=== PATIENT | male | born 1940 | race Caucasian/White ===

== ENCOUNTER 2025-01-16 14:53 | Inpatient (IN) | payer MEDICARE, BC, MEDICAID ==
[2025-01-16] MEDS ORDERED: Ondansetron 4 MG/2 ML SDV IV PRN (15:03)
[2025-01-16] MEDS ORDERED: Acetaminophen 325 MG Tab PO PRN (15:03)
[2025-01-16] MEDS ORDERED: Sodium Chloride 0.9% 10 ML Syringe FLUSH PRN (15:03)
[2025-01-16] MEDS ORDERED: Ondansetron 4 MG Tab.DIS PO PRN (15:03)
[2025-01-16] MEDS: Bumetanide 2.5 MG/10 ML MDV IVPUSH SCH (16:13)
[2025-01-16] MEDS ORDERED: Diclofenac Sodium 1% Gel 100 GM Tube TOP PRN (17:01)
[2025-01-16] MEDS ORDERED: Hypromellose 0.3% Ophth Soln 15 ML Bottle EYEBOTH PRN (17:01)
[2025-01-16] MEDS ORDERED: Simethicone 80 MG Tab.Chew PO PRN (17:01)
[2025-01-16] MEDS ORDERED: Lactulose Soln 10 GM/15 ML 30 ML UD Cup PO PRN (17:01)
[2025-01-16] MEDS ORDERED: Calcium Carbonate 500 MG Tab.Chew PO PRN (17:01)
[2025-01-16] MEDS: Acetaminophen 325 MG Tab PO SCH (20:16)
[2025-01-16] MEDS: Sennosides/Docusate Sodium 50-8.6 MG Tab PO SCH (20:16)
[2025-01-16] MEDS: Pravastatin 20 MG Tab PO SCH (20:17)
[2025-01-16] MEDS: Docusate Sodium 100 MG Cap PO SCH (20:17)
[2025-01-16] MEDS: Melatonin 3 MG Tab PO SCH (20:17)
[2025-01-16] MEDS: Tamsulosin 0.4 MG Cap.ER PO SCH (20:17)
[2025-01-16] MEDS: Ferrous Sulfate 324 MG Tab.EC PO SCH (20:17)
[2025-01-16] MEDS: Potassium Chloride 10 MEQ Tab.ER PO SCH (20:18)
[2025-01-16] MEDS: Warfarin** 1 MG TABLET PO SCH (20:18)
[2025-01-16] MEDS: traMADol 50 MG Tab PO PRN (20:21)
[2025-01-17 07:42] LABS: BASOPHILS ABSOLUTE AUTO 0.04 10^3/uL (0.00-0.50); BASOPHILS PERCENT AUTO 0.8 % (0-1); EOSINOPHILS PERCENT AUTO 1.9 % (0-6); HEMATOCRIT 35.8 % (42.0-52.0); HEMOGLOBIN 11.8 g/dL (14.0-18.0); IMMATURE GRAN ABSOLUTE AUTO 0.01 10^3/uL (0.00-0.49); IMMATURE GRAN PERCENT AUTO 0.2 % (0.0-4.9); LYMPHOCYTES ABSOLUTE AUTO 0.38 10^3/uL (0.60-5.00); LYMPHOCYTES PERCENT AUTO 7.1 % (24-44); MEAN CORPUSCULAR HEMOGLOBIN 31.1 pg (27.0-32.0); MEAN CORPUSCULAR VOLUME 94.2 fL (83.0-97.0); MONOCYTES PERCENT AUTO 13.1 % (0-10); NEUTROPHILS PERCENT AUTO 76.9 % (41-71); PLATELET COUNT,PLT 174 10^3/uL (150-400); WHITE BLOOD CELL COUNT,WBC 5.3 10^3/uL (4.0-11.0)
[2025-01-17] MEDS: Ascorbic Acid 500 MG Tab PO SCH (07:47)
[2025-01-17] MEDS: Beta-Carotene (Vitamin A) w/Vitamin C & E plus Minerals Tab PO SCH (07:47)
[2025-01-17] MEDS: Metoprolol Succinate 25 MG Tab.ER PO SCH (07:47)
[2025-01-17] MEDS: Ezetimibe 10 MG Tab PO SCH (07:48)
[2025-01-17] MEDS: Polyethylene Glycol 3350 Powder 17 GM Packet PO SCH (07:48)
[2025-01-17] MEDS: Pantoprazole 40 MG Tab.CR PO SCH (07:48)
[2025-01-17 08:06] LABS: BILIRUBIN TOTAL 0.8 mg/dL (0.0-1.0); C-REACTIVE PROTEIN 1.95 mg/dL (<=0.50); CALCIUM 9.2 mg/dL (8.4-10.1); CREATININE 1.7 mg/dL (0.7-1.3); EST CRCL DRUG DOSING (CG) 33.22 mL/min; POTASSIUM,K 4.5 mEq/L (3.5-5.0); PROTEIN TOTAL,TP 6.6 g/dL (6.4-8.2)
[2025-01-17] MEDS: Temazepam 15 MG Cap PO PRN (21:30)
[2025-01-18 07:52] LABS: BASOPHILS ABSOLUTE AUTO 0.03 10^3/uL (0.00-0.50); BASOPHILS PERCENT AUTO 0.6 % (0-1); EOSINOPHILS ABSOLUTE AUTO 0.12 10^3/uL (0.00-1.50); EOSINOPHILS PERCENT AUTO 2.2 % (0-6); HEMATOCRIT 36.9 % (42.0-52.0); HEMOGLOBIN 12.1 g/dL (14.0-18.0); IMMATURE GRAN ABSOLUTE AUTO 0.01 10^3/uL (0.00-0.49); IMMATURE GRAN PERCENT AUTO 0.2 % (0.0-4.9); LYMPHOCYTES ABSOLUTE AUTO 0.48 10^3/uL (0.60-5.00); MEAN CORPUSCULAR HGB CONC 32.8 g/dL (32.0-36.0); MEAN CORPUSCULAR VOLUME 94.6 fL (83.0-97.0); MONOCYTES PERCENT AUTO 13.1 % (0-10); NEUTROPHILS ABSOLUTE AUTO 4.01 x10^3/uL (1.80-8.00); NEUTROPHILS PERCENT AUTO 74.9 % (41-71); PLATELET COUNT,PLT 180 10^3/uL (150-400); WHITE BLOOD CELL COUNT,WBC 5.4 10^3/uL (4.0-11.0)
[2025-01-18 08:08] LABS: BILIRUBIN TOTAL 0.7 mg/dL (0.0-1.0); C-REACTIVE PROTEIN 1.67 mg/dL (<=0.50); CALCIUM 9.1 mg/dL (8.4-10.1); CREATININE 1.6 mg/dL (0.7-1.3); EST CRCL DRUG DOSING (CG) 35.3 mL/min; POTASSIUM,K 4.3 mEq/L (3.5-5.0); PROTEIN TOTAL,TP 6.6 g/dL (6.4-8.2)
[2025-01-18 12:14] VITALS: BP 119/59; PULSE 87
== END 2025-01-18 11:45 | disposition home or self-care (01) | DRG 291 ==
LOC: UNDOADMIN 14:53 → CC.MS 14:53
PROVIDERS: ADMIT Nurse Practitioner Family; ATTEND Nurse Practitioner Family
DX: I11.0 Hypertensive heart disease with heart failure (principal); I50.33 Acute on chronic diastolic (congestive) heart failure; H54.7 Unspecified visual loss; Z66 Do not resuscitate; I50.813 Acute on chronic right heart failure; I25.10 Atherosclerotic heart disease of native coronary artery without angina pectoris; E78.00 Pure hypercholesterolemia, unspecified; Z96.0 Presence of urogenital implants; I48.91 Unspecified atrial fibrillation; K59.09 Other constipation; Z87.828 Personal history of other (healed) physical injury and trauma; Z86.718 Personal history of other venous thrombosis and embolism; Z98.49 Cataract extraction status, unspecified eye; Z79.52 Long term (current) use of systemic steroids; Z79.899 Other long term (current) drug therapy; Z79.01 Long term (current) use of anticoagulants; Z79.891 Long term (current) use of opiate analgesic; Z90.49 Acquired absence of other specified parts of digestive tract; Z98.890 Other specified postprocedural states
CPT/HCPCS: 36415; 80053; 84484; 85025; 86140; 97161-GP; 99223; 99233; 99238; A9270-GY; J1939

== ENCOUNTER 2025-02-05 19:17 | Inpatient (IN) | payer MEDICARE, BC, MEDICAID ==
[2025-02-05] MEDS: HYDROmorphone 0.5 MG/0.5 ML Syringe IVPUSH ONE (19:48)
[2025-02-05] MEDS: Sodium Chloride 0.9% 500 ML IV SCH (19:49)
[2025-02-05 20:00] LABS: APPEARANCE,URINE TURBID (CLEAR); BILIRUBIN,URINE SMALL (NEGATIVE); COLOR,URINE YELLOW (YELLOW); GLUCOSE,URINE NEGATIVE (NEGATIVE); KETONES,URINE NEGATIVE (NEGATIVE); LEUKOCYTE ESTERASE,URINE NEGATIVE (NEGATIVE); NITRITE,URINE NEGATIVE (NEGATIVE); OCCULT BLOOD,URINE LARGE (NEGATIVE); PROTEIN,URINE >=300 mg/dL (NEGATIVE)
[2025-02-05 20:08] LABS: BACTERIA,URINE MANY /HPF (NOT SEEN); GRANULAR CASTS,URINE FEW /LPF (NOT SEEN); RBC,URINE 0-5 /HPF (0-5); WBC,URINE 20-30 /HPF (0-5)
[2025-02-05 20:29] LABS: BASOPHILS ABSOLUTE AUTO 0.01 10^3/uL (0.00-0.50); BASOPHILS PERCENT AUTO 0.1 % (0-1); EOSINOPHILS ABSOLUTE AUTO 0.01 10^3/uL (0.00-1.50); EOSINOPHILS PERCENT AUTO 0.1 % (0-6); HEMATOCRIT 40.7 % (42.0-52.0); HEMOGLOBIN 13.2 g/dL (14.0-18.0); IMMATURE GRAN ABSOLUTE AUTO 0.03 10^3/uL (0.00-0.49); IMMATURE GRAN PERCENT AUTO 0.3 % (0.0-4.9); LYMPHOCYTES ABSOLUTE AUTO 0.35 10^3/uL (0.60-5.00); LYMPHOCYTES PERCENT AUTO 3.1 % (24-44); MEAN CORPUSCULAR HEMOGLOBIN 30.9 pg (27.0-32.0); MEAN CORPUSCULAR HGB CONC 32.4 g/dL (32.0-36.0); MEAN CORPUSCULAR VOLUME 95.3 fL (83.0-97.0); MONOCYTES ABSOLUTE AUTO 0.83 10^3/uL (0.00-1.50); MONOCYTES PERCENT AUTO 7.3 % (0-10); NEUTROPHILS ABSOLUTE AUTO 10.08 x10^3/uL (1.80-8.00); NEUTROPHILS PERCENT AUTO 89.1 % (41-71); PLATELET COUNT,PLT 234 10^3/uL (150-400); RED BLOOD CELL COUNT 4.27 x10^6/uL (4.50-6.00); WHITE BLOOD CELL COUNT,WBC 11.3 10^3/uL (4.0-11.0)
[2025-02-05 20:42] LABS: ALBUMIN 2.8 g/dL (3.4-5.0); BILIRUBIN TOTAL 4.3 mg/dL (0.0-1.0); C-REACTIVE PROTEIN 8.69 mg/dL (<=0.50); CALCIUM 9.7 mg/dL (8.4-10.1); CREATININE 1.7 mg/dL (0.7-1.3); EST CRCL DRUG DOSING (CG) 33.22 mL/min; MAGNESIUM 1.8 mg/dL (1.8-2.4); PROTEIN TOTAL,TP 7.3 g/dL (6.4-8.2)
[2025-02-05 20:45] LABS: POTASSIUM,K 6.1 mEq/L (3.5-5.0)
[2025-02-05] MEDS ORDERED: Glucagon,Human Recombinant 1 MG Vial IM PRN (20:58)
[2025-02-05] MEDS ORDERED: 50% Dextrose in Water 50 ML Syringe IVPUSH PRN (20:58)
[2025-02-05] MEDS: Sodium Zirconium Cyclosilicate 10 GM Packet PO STA (21:17)
[2025-02-05] MEDS: Calcium Gluconate 10% 1 GM/10 ML SDV IVPUSH ONE (21:18)
[2025-02-05] MEDS: Dextrose 10% in Water 500 ML IV SCH (21:18)
[2025-02-05] MEDS: 50% Dextrose in Water 50 ML Syringe IVPUSH ONE (21:30)
[2025-02-05] MEDS: Insulin Regular, Human 100 Units/ML 10 ML Vial IVPUSH ONE (21:32)
[2025-02-05] MEDS: cefTRIAXone 2 GM Vial IVPUSH ONE (21:40)
[2025-02-05] MEDS: Bumetanide 2.5 MG/10 ML MDV IVPUSH ONE (21:55)
[2025-02-05] MEDS ORDERED: Calcium Carbonate 500 MG Tab.Chew PO PRN (22:17)
[2025-02-05] MEDS ORDERED: Diclofenac Sodium 1% Gel 100 GM Tube TOP PRN (22:17)
[2025-02-05] MEDS ORDERED: Simethicone 80 MG Tab.Chew PO PRN (22:17)
[2025-02-05] MEDS ORDERED: Sennosides/Docusate Sodium 50-8.6 MG Tab PO PRN (22:17)
[2025-02-05] MEDS ORDERED: Polyethylene Glycol 3350 Powder 17 GM Packet PO PRN (22:17)
[2025-02-05] MEDS ORDERED: Ondansetron 4 MG/2 ML SDV IV PRN (22:35)
[2025-02-05] MEDS ORDERED: Acetaminophen 325 MG Tab PO PRN (22:35)
[2025-02-05] MEDS ORDERED: Ondansetron 4 MG Tab.DIS PO PRN (22:35)
[2025-02-05] MEDS: Bumetanide 2.5 MG/10 ML MDV ONE (22:50)
[2025-02-06 01:04] LABS: CALCIUM 9.6 mg/dL (8.4-10.1); CREATININE 1.8 mg/dL (0.7-1.3); EST CRCL DRUG DOSING (CG) 31.38 mL/min; POTASSIUM,K 4.5 mEq/L (3.5-5.0)
[2025-02-06] MEDS: HYDROmorphone 0.5 MG/0.5 ML Syringe IVPUSH PRN (03:51)
[2025-02-06] MEDS: Sodium Zirconium Cyclosilicate 10 GM Packet PO SCH (04:42)
[2025-02-06] MEDS: Pantoprazole 40 MG Tab.CR PO SCH (06:13)
[2025-02-06 07:35] LABS: BASOPHILS ABSOLUTE AUTO 0.01 10^3/uL (0.00-0.50); BASOPHILS PERCENT AUTO 0.1 % (0-1); EOSINOPHILS ABSOLUTE AUTO 0.01 10^3/uL (0.00-1.50); EOSINOPHILS PERCENT AUTO 0.1 % (0-6); HEMATOCRIT 39.1 % (42.0-52.0); HEMOGLOBIN 12.7 g/dL (14.0-18.0); IMMATURE GRAN ABSOLUTE AUTO 0.02 10^3/uL (0.00-0.49); IMMATURE GRAN PERCENT AUTO 0.1 % (0.0-4.9); LYMPHOCYTES ABSOLUTE AUTO 0.36 10^3/uL (0.60-5.00); LYMPHOCYTES PERCENT AUTO 2.6 % (24-44); MEAN CORPUSCULAR HEMOGLOBIN 30.6 pg (27.0-32.0); MEAN CORPUSCULAR HGB CONC 32.5 g/dL (32.0-36.0); MEAN CORPUSCULAR VOLUME 94.2 fL (83.0-97.0); MONOCYTES ABSOLUTE AUTO 0.93 10^3/uL (0.00-1.50); MONOCYTES PERCENT AUTO 6.6 % (0-10); NEUTROPHILS ABSOLUTE AUTO 12.74 x10^3/uL (1.80-8.00); NEUTROPHILS PERCENT AUTO 90.5 % (41-71); PLATELET COUNT,PLT 225 10^3/uL (150-400); RED BLOOD CELL COUNT 4.15 x10^6/uL (4.50-6.00); WHITE BLOOD CELL COUNT,WBC 14.1 10^3/uL (4.0-11.0)
[2025-02-06] MEDS: Bumetanide 2.5 MG/10 ML MDV IVPUSH SCH (07:41)
[2025-02-06] MEDS: Beta-Carotene (Vitamin A) w/Vitamin C & E plus Minerals Tab PO SCH (07:42)
[2025-02-06] MEDS: Tamsulosin 0.4 MG Cap.ER PO PRN (07:42)
[2025-02-06] MEDS: Ezetimibe 10 MG Tab PO SCH (07:42)
[2025-02-06] MEDS: Ferrous Sulfate 324 MG Tab.EC PO SCH (07:43)
[2025-02-06] MEDS: Ascorbic Acid 500 MG Tab PO SCH (07:43)
[2025-02-06] MEDS: Docusate Sodium 100 MG Cap PO PRN (07:43)
[2025-02-06] MEDS: Metoprolol Succinate 25 MG Tab.ER PO SCH (07:44)
[2025-02-06 08:00] LABS: ALBUMIN 2.7 g/dL (3.4-5.0); BILIRUBIN TOTAL 3.8 mg/dL (0.0-1.0); C-REACTIVE PROTEIN 10.94 mg/dL (<=0.50); CALCIUM 9.6 mg/dL (8.4-10.1); CREATININE 1.7 mg/dL (0.7-1.3); EST CRCL DRUG DOSING (CG) 33.22 mL/min; POTASSIUM,K 5.1 mEq/L (3.5-5.0); PROTEIN TOTAL,TP 6.8 g/dL (6.4-8.2)
[2025-02-06] MEDS ORDERED: Hypromellose 0.3% Ophth Soln 15 ML Bottle EYEBOTH PRN (08:09)
[2025-02-06 08:28] LABS: INR > 10.00 (0.92-1.18); PROTHROMBIN TIME > 100.0 SEC (9.3-11.3)
[2025-02-06] MEDS: Oxybutynin 5 MG Tab.ER PO ONE (10:43)
[2025-02-06] MEDS: Phytonadione 5 MG Tab PO ONE (10:44)
[2025-02-06] MEDS: Azithromycin 500 MG in Sodium Chloride 0.9% 250 ML IV SCH (13:47)
[2025-02-06] MEDS: Oxyquinoline/Emollient 0.3% Oint 4 OZ Canister TOP PRN (18:27)
[2025-02-06] MEDS: traMADol 50 MG Tab PO PRN (18:38)
[2025-02-06] MEDS: traMADol 50 MG Tab PO SCH (19:28)
[2025-02-06] MEDS: Tamsulosin 0.4 MG Cap.ER PO SCH (19:38)
[2025-02-06] MEDS: Melatonin 3 MG Tab PO SCH (19:39)
[2025-02-06] MEDS: traZODone 50 MG Tab PO SCH (19:39)
[2025-02-06] MEDS: Pravastatin 20 MG Tab PO SCH (19:40)
[2025-02-06] MEDS: cefTRIAXone 2 GM Vial IVPUSH SCH (19:41)
[2025-02-06] MEDS: Docusate Sodium 100 MG Cap PO SCH (19:41)
[2025-02-06] MEDS ORDERED: Non-Formulary Medication 1 Each (Warfarin 3 MG Tablet) PO SCH (20:00)
[2025-02-06] MEDS: Diclofenac Sodium 1% Gel 100 GM Tube TOP SCH (20:03)
[2025-02-07] MEDS: oxyCODONE 5 MG Tab PO PRN (05:10)
[2025-02-07 07:22] LABS: ALBUMIN 2.6 g/dL (3.4-5.0); BILIRUBIN TOTAL 2.3 mg/dL (0.0-1.0); C-REACTIVE PROTEIN 13.93 mg/dL (<=0.50); CALCIUM 9.2 mg/dL (8.4-10.1); EST CRCL DRUG DOSING (CG) 28.24 mL/min; POTASSIUM,K 4.2 mEq/L (3.5-5.0); PROTEIN TOTAL,TP 6.7 g/dL (6.4-8.2)
[2025-02-07 07:27] LABS: BASOPHILS ABSOLUTE AUTO 0.01 10^3/uL (0.00-0.50); BASOPHILS PERCENT AUTO 0.1 % (0-1); EOSINOPHILS ABSOLUTE AUTO 0.01 10^3/uL (0.00-1.50); EOSINOPHILS PERCENT AUTO 0.1 % (0-6); HEMOGLOBIN 12.2 g/dL (14.0-18.0); IMMATURE GRAN ABSOLUTE AUTO 0.03 10^3/uL (0.00-0.49); IMMATURE GRAN PERCENT AUTO 0.2 % (0.0-4.9); LYMPHOCYTES ABSOLUTE AUTO 0.46 10^3/uL (0.60-5.00); LYMPHOCYTES PERCENT AUTO 3.8 % (24-44); MEAN CORPUSCULAR HEMOGLOBIN 30.8 pg (27.0-32.0); MEAN CORPUSCULAR VOLUME 93.4 fL (83.0-97.0); MONOCYTES ABSOLUTE AUTO 0.82 10^3/uL (0.00-1.50); MONOCYTES PERCENT AUTO 6.7 % (0-10); NEUTROPHILS ABSOLUTE AUTO 10.92 x10^3/uL (1.80-8.00); NEUTROPHILS PERCENT AUTO 89.1 % (41-71); PLATELET COUNT,PLT 232 10^3/uL (150-400); RED BLOOD CELL COUNT 3.96 x10^6/uL (4.50-6.00); WHITE BLOOD CELL COUNT,WBC 12.3 10^3/uL (4.0-11.0)
[2025-02-07 07:42] LABS: PROTHROMBIN TIME 44.2 SEC (9.3-11.3)
[2025-02-07 07:54] LABS: INR 4.77 (0.92-1.18)
[2025-02-07] MEDS: Polyethylene Glycol 3350 Powder 17 GM Packet PO SCH (08:09)
[2025-02-07] MEDS: Oxybutynin 5 MG Tab.ER PO SCH (08:09)
[2025-02-07] MEDS: Lactobacillus Rhamnosus GG (Probiotic) Cap PO SCH (08:09)
[2025-02-07] MEDS: Empagliflozin 10 MG Tab PO SCH (08:09)
[2025-02-07] MEDS: Metolazone 5 MG Tab PO ONE (10:58)
[2025-02-07] MEDS: Levofloxacin/Dextrose 5%-Water 750 MG in Premix Bag 1 BAG IV SCH (10:59)
[2025-02-07] MEDS: Morphine 2 MG/ML SYRINGE IVPUSH PRN (16:25)
[2025-02-08 07:57] LABS: BASOPHILS ABSOLUTE AUTO 0.02 10^3/uL (0.00-0.50); BASOPHILS PERCENT AUTO 0.2 % (0-1); EOSINOPHILS ABSOLUTE AUTO 0.02 10^3/uL (0.00-1.50); EOSINOPHILS PERCENT AUTO 0.2 % (0-6); HEMATOCRIT 33.8 % (42.0-52.0); HEMOGLOBIN 11.4 g/dL (14.0-18.0); IMMATURE GRAN ABSOLUTE AUTO 0.02 10^3/uL (0.00-0.49); IMMATURE GRAN PERCENT AUTO 0.2 % (0.0-4.9); LYMPHOCYTES PERCENT AUTO 4.5 % (24-44); MEAN CORPUSCULAR HEMOGLOBIN 31.2 pg (27.0-32.0); MEAN CORPUSCULAR HGB CONC 33.7 g/dL (32.0-36.0); MEAN CORPUSCULAR VOLUME 92.6 fL (83.0-97.0); MONOCYTES ABSOLUTE AUTO 0.63 10^3/uL (0.00-1.50); MONOCYTES PERCENT AUTO 7.1 % (0-10); NEUTROPHILS ABSOLUTE AUTO 7.76 x10^3/uL (1.80-8.00); NEUTROPHILS PERCENT AUTO 87.8 % (41-71); PLATELET COUNT,PLT 215 10^3/uL (150-400); RED BLOOD CELL COUNT 3.65 x10^6/uL (4.50-6.00); WHITE BLOOD CELL COUNT,WBC 8.9 10^3/uL (4.0-11.0)
[2025-02-08 08:08] LABS: INR 2.53 (0.92-1.18); PROTHROMBIN TIME 24.5 SEC (9.3-11.3)
[2025-02-08 08:10] LABS: ALBUMIN 2.4 g/dL (3.4-5.0); BILIRUBIN TOTAL 1.6 mg/dL (0.0-1.0); C-REACTIVE PROTEIN 13.7 mg/dL (<=0.50); CALCIUM 9.2 mg/dL (8.4-10.1); CREATININE 2.2 mg/dL (0.7-1.3); EST CRCL DRUG DOSING (CG) 25.67 mL/min; POTASSIUM,K 3.1 mEq/L (3.5-5.0); PROTEIN TOTAL,TP 6.5 g/dL (6.4-8.2)
[2025-02-08] MEDS: Potassium Chloride 20 MEQ Tab.ER PO SCH (09:04)
[2025-02-08] MEDS: Warfarin** 1 MG TABLET PO SCH (20:21)
[2025-02-09] MEDS: Sennosides 8.6 MG Tab PO PRN (06:16)
[2025-02-09 08:06] LABS: BASOPHILS ABSOLUTE AUTO 0.01 10^3/uL (0.00-0.50); BASOPHILS PERCENT AUTO 0.1 % (0-1); EOSINOPHILS ABSOLUTE AUTO 0.04 10^3/uL (0.00-1.50); EOSINOPHILS PERCENT AUTO 0.5 % (0-6); HEMATOCRIT 33.5 % (42.0-52.0); HEMOGLOBIN 11.5 g/dL (14.0-18.0); IMMATURE GRAN ABSOLUTE AUTO 0.02 10^3/uL (0.00-0.49); IMMATURE GRAN PERCENT AUTO 0.3 % (0.0-4.9); LYMPHOCYTES PERCENT AUTO 5.1 % (24-44); MEAN CORPUSCULAR HEMOGLOBIN 31.2 pg (27.0-32.0); MEAN CORPUSCULAR HGB CONC 34.3 g/dL (32.0-36.0); MEAN CORPUSCULAR VOLUME 90.8 fL (83.0-97.0); MONOCYTES ABSOLUTE AUTO 0.76 10^3/uL (0.00-1.50); MONOCYTES PERCENT AUTO 9.8 % (0-10); NEUTROPHILS ABSOLUTE AUTO 6.56 x10^3/uL (1.80-8.00); NEUTROPHILS PERCENT AUTO 84.2 % (41-71); PLATELET COUNT,PLT 223 10^3/uL (150-400); RED BLOOD CELL COUNT 3.69 x10^6/uL (4.50-6.00); WHITE BLOOD CELL COUNT,WBC 7.8 10^3/uL (4.0-11.0)
[2025-02-09 08:19] LABS: INR 2.83 (0.92-1.18); PROTHROMBIN TIME 27.2 SEC (9.3-11.3)
[2025-02-09 08:22] LABS: ALBUMIN 2.4 g/dL (3.4-5.0); BILIRUBIN TOTAL 1.4 mg/dL (0.0-1.0); C-REACTIVE PROTEIN 9.74 mg/dL (<=0.50); CALCIUM 9.1 mg/dL (8.4-10.1); EST CRCL DRUG DOSING (CG) 28.24 mL/min; PROTEIN TOTAL,TP 6.5 g/dL (6.4-8.2)
[2025-02-09] MEDS: Potassium Chloride 20 MEQ Tab.ER PO ONE (11:06)
[2025-02-09] MEDS: Warfarin 2 MG Tab PO ONE (19:56)
[2025-02-10 07:43] LABS: BASOPHILS ABSOLUTE AUTO 0.01 10^3/uL (0.00-0.50); BASOPHILS PERCENT AUTO 0.1 % (0-1); EOSINOPHILS ABSOLUTE AUTO 0.03 10^3/uL (0.00-1.50); EOSINOPHILS PERCENT AUTO 0.4 % (0-6); HEMOGLOBIN 11.4 g/dL (14.0-18.0); IMMATURE GRAN ABSOLUTE AUTO 0.03 10^3/uL (0.00-0.49); IMMATURE GRAN PERCENT AUTO 0.4 % (0.0-4.9); LYMPHOCYTES ABSOLUTE AUTO 0.49 10^3/uL (0.60-5.00); MEAN CORPUSCULAR HEMOGLOBIN 30.9 pg (27.0-32.0); MEAN CORPUSCULAR HGB CONC 33.5 g/dL (32.0-36.0); MEAN CORPUSCULAR VOLUME 92.1 fL (83.0-97.0); MONOCYTES ABSOLUTE AUTO 0.97 10^3/uL (0.00-1.50); MONOCYTES PERCENT AUTO 11.9 % (0-10); NEUTROPHILS ABSOLUTE AUTO 6.63 x10^3/uL (1.80-8.00); NEUTROPHILS PERCENT AUTO 81.2 % (41-71); PLATELET COUNT,PLT 239 10^3/uL (150-400); RED BLOOD CELL COUNT 3.69 x10^6/uL (4.50-6.00); WHITE BLOOD CELL COUNT,WBC 8.2 10^3/uL (4.0-11.0)
[2025-02-10 08:02] LABS: INR 3.89 (0.92-1.18); PROTHROMBIN TIME 36.6 SEC (9.3-11.3)
[2025-02-10 08:10] LABS: ALBUMIN 2.5 g/dL (3.4-5.0); BILIRUBIN TOTAL 1.4 mg/dL (0.0-1.0); C-REACTIVE PROTEIN 8.44 mg/dL (<=0.50); CALCIUM 9.1 mg/dL (8.4-10.1); CREATININE 1.8 mg/dL (0.7-1.3); EST CRCL DRUG DOSING (CG) 31.38 mL/min; PROTEIN TOTAL,TP 6.5 g/dL (6.4-8.2)
[2025-02-10 08:15] LABS: POTASSIUM,K 2.9 mEq/L (3.5-5.0)
[2025-02-10] MEDS: Potassium Chloride 20 MEQ Tab.ER PO ONE (09:37)
[2025-02-10] MEDS: fentaNYL 12 MCG/HR Transdermal Patch TRDERM SCH (11:18)
== END 2025-02-10 14:05 | DRG 441 ==
LOC: CC.ED 19:17 → CC.MS 21:59
PROVIDERS: ADMIT Nurse Practitioner Family; ATTEND Nurse Practitioner Family
DX: K72.00 Acute and subacute hepatic failure without coma (principal); J18.9 Pneumonia, unspecified organism; N30.01 Acute cystitis with hematuria; I13.0 Hypertensive heart and chronic kidney disease with heart failure and stage 1 through stage 4 chronic kidney disease, or unspecified chronic kidney disease; R18.8 Other ascites; N17.9 Acute kidney failure, unspecified; E87.5 Hyperkalemia; I50.813 Acute on chronic right heart failure; N18.32 Chronic kidney disease, stage 3b; I48.91 Unspecified atrial fibrillation; H54.7 Unspecified visual loss; I25.10 Atherosclerotic heart disease of native coronary artery without angina pectoris; E78.00 Pure hypercholesterolemia, unspecified; B95.2 Enterococcus as the cause of diseases classified elsewhere; R79.1 Abnormal coagulation profile; K44.9 Diaphragmatic hernia without obstruction or gangrene; K59.09 Other constipation; Z98.49 Cataract extraction status, unspecified eye; Z86.718 Personal history of other venous thrombosis and embolism; Z90.49 Acquired absence of other specified parts of digestive tract; Z98.890 Other specified postprocedural states; Z99.81 Dependence on supplemental oxygen; Z79.899 Other long term (current) drug therapy; Z79.891 Long term (current) use of opiate analgesic; Z79.01 Long term (current) use of anticoagulants; Z87.891 Personal history of nicotine dependence
CPT/HCPCS: 36415; 74176; 80048; 80053; 81001; 82550; 82947; 83690; 83735; 83880; 84484; 85025; 85610; 86140; 87086; 87088; 87186; 93005; 93010; 96361; 96374; 96375; 99223; 99232; 99233; 99239; 99285-25; A9270-GY; J0456; J0612; J0696; J1171; J1939; J1956; J2270; J7040; J7050